=== PATIENT | male | born 1980 | race Hispanic/Latino ===

== ENCOUNTER 2023-12-27 16:12 | Emergency (ER) | payer OTHER ==
[~2023-12-27] VITALS: Ht 182.9 cm; Wt 133.4 kg
[2023-12-27] MEDS: HYDROCODONE/ACETAMINOPHEN 5/325 MG TAB PO ONE (17:22)
[2023-12-27] MEDS: KETOROLAC 15MG/ML VIAL (15MG/ML) IM STA (17:22)
[2023-12-27] MEDS: METHOCARBAMOL 500 MG TABLET PO STA (17:22)
[2023-12-27] MEDS: DEXAMETHASONE SOD PHOSPHATE 4 MG/ML 1ML VIAL IM STA (17:22)
[2023-12-27] MEDS ORDERED: METH100054 PO (18:58)
[2023-12-27 19:03] VITALS: BP 115/78; PULSE 84; RESP 17; O2SAT 96
== END 2023-12-27 19:08 | disposition home or self-care (01) ==
LOC: EDH 16:12
DX: M25.551 Pain in right hip (principal)
CPT/HCPCS: 99284; 96372 ×2; J1100; J1885

== ENCOUNTER 2024-10-06 16:33 | Emergency (ER) | payer SELFPAY ==
[~2024-10-06] VITALS: Ht 182.9 cm; Wt 143.8 kg
[~2024-10-06 16:33] MED LIST: METH100054 PO
[2024-10-06 17:01] VITALS: BP 133/99; PULSE 99; RESP 16; TEMP 98.2; O2SAT 96
[2024-10-06] MEDS ORDERED: HYDR-4060 PO (17:18)
[2024-10-06] MEDS ORDERED: VALA100031 PO (17:18)
[2024-10-06] MEDS ORDERED: METH4TAB3 PO (17:18)
--- NOTE | 2024-10-06 17:22 | ERN ---
General Chief Complaint: Skin Rash/Abscess Stated Complaint: PAINFUL RASH Time Seen by MD: 16:37 History of Present Illness Allergies: Coded Allergies: No Known Drug Allergies (Unverified Allergy, Unknown, 12/27/23) Home Meds Active Scripts Methocarbamol (Methocarbamol) 1,000 Mg Tablet, 1000 MG PO QID PRN for PAIN for 5 Days, #20 TAB Prov:NIKO ZARCO [employer] 12/27/23 Past Medical History Past Medical History: No Pertinent History Past Surgical History: None ED Course Vital Signs Date Time Temp Pulse Resp B/P (MAP) Pulse Ox O2 Delivery O2 Flow Rate FiO2 10/06/24 17:01 98.2 99 16 133/99 96 Room Air* 0 21 10/06/24 16:39 98.2 99 16 133/99 96 Room Air 0 DX & DISP Disposition: Discharge Departure Impression: Primary Impression: Shingles rash Condition: Stable Scripts Hydrocodone/Acetaminophen (Hydrocodon-Acetaminophen 5-325) 5 Mg-325 Mg Tablet 1-2 TAB PO TIDP PRN for pain for 5 Days, #30 TAB 0 Refills Prov: RICKI BONNER DO 10/06/24 Methylprednisolone (Medrol) 4 Mg Tab.ds.pk 1 TAB PO AD for 6 Days, #21 TAB 0 Refills 6 on day 1 then reduce by one tablet daily until gone Prov: RICKI BONNER DO 10/06/24 Valacyclovir HCl (Valacyclovir) 1,000 Mg Tablet 1 TAB PO TID for 7 Days, #21 TAB 0 Refills Prov: RICKI BONNER DO 10/06/24 Additional Instructions: You have shingles, which is a viral infection in the nerves. I have prescribed valacyclovir. This is an antiviral medication. Take the entire course as prescribed. I have prescribed a Medrol Dosepak. These are anti-inflammatory steroids. Please take the entire course as prescribed. I have prescribed Bogart tabs (acetaminophen/hydrocodone). This is an opiate based pain medication. You can use one or two tabs every 6 hours for significant pain. I recommend that you take ibuprofen (800 mg) up to 3 times a day as needed for pain. You can also try [id number] capsaicin cream or Voltaren gel. As we discussed, keep the rash clean and dry to prevent secondary infection. Do not scratch the blisters. Wear loose fitting clothing to avoid irritation Shingles is very contagious. Avoid contact with women, young babies, and elderly folks. Please follow up with the emergency department if you have any concerns. Otherwise you can follow up with your primary doctor in two weeks to ensure resolution of symptoms. Referrals: NONE (PCP) RICKI BONNER DO Oct 06, 2024 17:22
== END 2024-10-06 17:27 | disposition home or self-care (01) ==
LOC: EDH 16:33
DX: B02.9 Zoster without complications (principal); Z79.899 Other long term (current) drug therapy
CPT/HCPCS: 99283